=== PATIENT | male | born 1990 | race Caucasian/White ===

== ENCOUNTER 2020-08-25 10:26 | Emergency (ER) | payer BC ==
[2020-08-25 11:38] LABS: HEMOGLOBIN 15.6 gm/dl (14.0-17.5); RED BLOOD COUNT 4.93 M/UL (4.20-5.50); WHITE BLOOD COUNT 6.2 K/UL (4.5-11.0)
[2020-08-25 12:08] LABS: BUN/CREATININE RATIO 11 (0-10)
== END 2020-08-25 14:30 | disposition home or self-care (01) ==
LOC: ER1 10:26
PROVIDERS: Nurse Practitioner
DX: R07.89 Other chest pain (principal); R00.1 Bradycardia, unspecified
CPT/HCPCS: 70450; 71045; 80053; 82550; 82553; 83735; 83874; 84484; 85025; 85379; 93005; 93270; 99285; J7030